=== PATIENT | female | born 1985 | race Caucasian/White ===

== ENCOUNTER → 2019-12-06 15:28 | Outpatient (BNVA) | payer MEDICAID, SELFPAY | PROVIDERS: Family Provider Electrodiagnostic Medicine; PCP Electrodiagnostic Medicine; Visit Provider Obstetrics & Gynecology | DX: R10.2 Pelvic and perineal pain (principal); N83.201 Unspecified ovarian cyst, right side | CPT/HCPCS: 76830 ==

== ENCOUNTER → 2020-02-29 09:45 | Outpatient (BNVA) | payer SELFPAY | PROVIDERS: Family Provider Electrodiagnostic Medicine; PCP Electrodiagnostic Medicine; Visit Provider Obstetrics & Gynecology | DX: Z12.4 Encounter for screening for malignant neoplasm of cervix (principal); R10.31 Right lower quadrant pain | CPT/HCPCS: 88175 ==

== ENCOUNTER → 2020-03-27 09:30 | Outpatient (BNVA) | payer SELFPAY | PROVIDERS: Family Provider Electrodiagnostic Medicine; PCP Electrodiagnostic Medicine; Referring Provider Neurological Surgery; Visit Provider Anesthesiology Pain Medicine | DX: M54.16 Radiculopathy, lumbar region (principal); M47.816 Spondylosis without myelopathy or radiculopathy, lumbar region; M43.06 Spondylolysis, lumbar region; M54.12 Radiculopathy, cervical region; M62.830 Muscle spasm of back | CPT/HCPCS: 99204; 99205 ==

== ENCOUNTER → 2020-04-09 12:55 | Outpatient (BNVA) | payer SELFPAY | PROVIDERS: Family Provider Electrodiagnostic Medicine; PCP Electrodiagnostic Medicine; Visit Provider Anesthesiology Pain Medicine | DX: M54.16 Radiculopathy, lumbar region (principal); M54.9 Dorsalgia, unspecified; F17.210 Nicotine dependence, cigarettes, uncomplicated | CPT/HCPCS: 64483; 64484; J1040; J3490 ==

== ENCOUNTER → 2020-07-17 11:36 | Outpatient (BNVA) | payer SELFPAY | PROVIDERS: Family Provider Electrodiagnostic Medicine; PCP Electrodiagnostic Medicine; Visit Provider Electrodiagnostic Medicine | DX: Z11.59 Encounter for screening for other viral diseases (principal) | CPT/HCPCS: 87635 ==

== ENCOUNTER 2020-08-07 18:46 | Emergency (ER) | payer SELFPAY ==
[2020-08-07 19:03] VITALS: BP 141/81; PULSE 102; RESP 17; TEMP 36.9; O2SAT 98; BMI 26.5
--- NOTE | 2020-08-07 19:35 | W.ED.BACK ---
HPI - Back Pain/Injury General: Chief Complaint: Back Pain/Injury Stated Complaint: lower back pain Time Seen by Provider: 08/07/20 19:34 History of Present Illness: HPI Narrative: Patient is a 34-year-old female comes to the ED with acute on chronic lower back pain. Yesterday patient was walking down the steps and her foot got caught she missed a step. She reports not falling or hitting tailbone steps. Denies any head trauma or loss of consciousness. She says she caught herself felt, but it tweaked her lower back. She now has right lower back pain with pain radiating down into the right leg. Pain rated an 8 out of 10 and described as sharp. She also has some centrally located lower back pain as well. Denies any bladder or bowel incontinence, weakness to extremities or pelvic anesthesia. Patient says she is seen pain management clinic in the past for back pain. Associated symptoms: Deny abdominal pain, chills, dysuria, fatigue, fever(s), hematuria, nausea or vomiting Review of Systems Const: Denies: fever(s), chills or fatigue Eyes: Denies: change in vision or eye discomfort ENMT: Denies: throat pain, odynophagia, nasal discharge or nasal congestion Card: Denies: chest pain, palpitations, edema, swelling of feet/ankles, dyspnea on exertion or orthopnea Resp: Denies: dyspnea, productive cough or non-productive cough GI: Denies: abdominal pain, nausea, vomiting, diarrhea, constipation or hematochezia : Denies: flank pain, dysuria or hematuria Musc: Reports: back pain; Denies: neck pain or extremity swelling Skin/Breast: Denies: rash or new lesions Neuro: Denies: headache(s), numbness in extremities or weakness in extremities PFS ED PFSH: Medical History Fibromyalgia Ovarian cyst 04/27/2019: Reports CT scan performed on 04/16/2019 for evaluation of pain showed an ovarian cyst. Sleep apnea (~06/2016) Uses CPAP Surgical History History of bilateral tubal ligation (10/18/12) . Performed by Dr. Fuentes at [facility] in [place], [place]. History of laparoscopy (06/17/11) Performed by Dr. Hayward at [facility] [place] [facility] History of tonsillectomy and adenoidectomy Family History Mother Hypercholesteremia Heart disease Hypertension Diabetes Son No problems noted. Sister Ovarian cancer Grandmother Diabetes maternal Social History Smoking and tobacco status: current some day smoker Alcohol intake: current Alcohol intake frequency: few times a month History of recent travel: No Female Reproductive History: Date of last menstrual period: 07/09/20 Physical Exam Const: COMMON NORMALS: patient oriented x3 HENMT: COMMON NORMALS: normocephalic HEAD & SCALP: normocephalic MOUTH: Normal oral and palatal mucosa present THROAT: posterior oropharynx normal and uvula midline Neck/C-Spine: COMMON NORMALS: supple GENERAL: Yes normal visual inspection Resp: COMMON NORMALS: normal respiratory effort, No retractions, No use of accessory muscles and clear to auscultation bilaterally AUSCULTATION: clear to auscultation bilaterally Cardio: COMMON NORMALS: regular rate, regular rhythm, S1 normal heart sound present, S2 normal heart sound present, No gallops present (Cardio), No clicks present (Cardio), No murmurs present (Cardio) and Peripheral pulses 2+ throughout RATE: regular rate RHYTHM: regular rhythm HEART SOUNDS: S1 normal heart sound present and S2 normal heart sound present PERIPHERAL PULSES: Peripheral pulses 2+ throughout GI: COMMON NORMALS: Normal to inspection, nondistended, normoactive bowel sounds present, Soft to palpation, non-tender and no masses PALPATION: Yes Soft to palpation : COMMON NORMALS: Yes no CVA tenderness BLADDER/KIDNEY EXAM: Yes no CVA tenderness Back/Pelvis: COMMON NORMALS: no CVA tenderness LUMBAR SPINE/LOWER BACK: Yes pain with ROM and Yes paraspinal muscle tenderness Lumbar paraspinal muscle tenderness: right Right lumbar paraspinal muscle tenderness: L3, L4 and L5 Extremity: COMMON NORMALS: normal to inspection and no pedal edema Neuro: COMMON NORMALS: patient oriented x3 and moves all extremities Skin: GENERAL SKIN EXAM: dry skin Course Vital Signs: Vital signs: Vital Signs Temperature 98.5 F 08/07/20 19:03 Pulse Rate 102 H 08/07/20 19:03 Respiratory Rate 17 08/07/20 19:03 Blood Pressure 141/81 08/07/20 19:03 Pulse Oximetry 98 08/07/20 19:03 MDM - Back Pain/Injury MDM Narrative: Medical decision making narrative: Patient is a 34-year-old female comes to the ED with acute on chronic back pain. Says pain radiates down right leg. Exam showed some right para lumbar spine muscle tenderness. I discussed plan with her to give dose of Toradol, Solu-Medrol and Norflex and then I will discharge her home with some ibuprofen 800 mg tablets and Medrol Dosepak. Patient says she sees her neuro surgeon in a couple weeks. Patient agreed with plan. When nurse went to give patient meds and discharge her she had left ED before receiving treatment and discharge papers. Discharge Plan Discharge Patient Disposition: Home Clinical Impression: Lumbar radiculopathy Condition: Stable Prescriptions: New Medrol (Cl) 4 mg tablets,dose pack See Rx Instructions .ROUTE .COMPLEX Qty: 21 RF: 0 ibuprofen 800 mg tablet 800 mg PO Q8H PRN (Reason: pain) Qty: 30 RF: 0 No Action ibuprofen 200 mg tablet 200 mg PO .4 tabs PRNRF: 0 cyclobenzaprine 10 mg tablet 10 mg PO BID PRN (Reason: muscle spasm) Qty: 60 RF: 0 gabapentin 300 mg capsule 300 mg PO TID Qty: 90 RF: 0 Discharge Orders: Discharge Order (Routine); Ordered 08/07/20 Ordered By: Jose F Baires Referrals: Patrick Schreiber, [Primary Care Provider] - Discharge Diet: Regular Discharge Activity: Increase activity as tolerated Patient Instructions: Lumbar Radiculopathy (ED) Activity Restrictions/Additional Instructions: Follow-up with medical provider as directed in 7 to 10 days. Take medications as prescribed. Rest, limit activity and lifting apply cold pack or heat pad to help with symptoms. Stretch lower back daily. Return to the ER or your medical provider if condition worsens. Please read and understand discharge instructions. If any questions, please ask. Coding Level of Care Code ED Resident In Diagnostic Radiology for Kristal Fwrajiv Exam Comprehensive
== END 2020-08-07 20:04 | disposition home or self-care (01) ==
PROVIDERS: Emergency Provider Physician Assistant; PCP Electrodiagnostic Medicine
DX: M54.16 Radiculopathy, lumbar region (principal); F17.210 Nicotine dependence, cigarettes, uncomplicated
CPT/HCPCS: 12345; 99281

== ENCOUNTER 2021-01-24 17:18 | Observation (INO) | payer SELFPAY ==
[2021-01-24 17:24] VITALS: BP 113/73; PULSE 80; RESP 18; TEMP 37.1; O2SAT 94; BMI 27.6
--- NOTE | 2021-01-24 17:32 | PC.NURSE ---
patient denied any abdominal pain or nausea at this time.
[2021-01-24 18:16] VITALS: BP 132/65; PULSE 81; RESP 14; O2SAT 96
[2021-01-24 18:37] VITALS: BP 103/64; PULSE 76; RESP 16; O2SAT 96
[2021-01-24 18:38] VITALS: RESP 14
[2021-01-24] MEDS: HYDROmorphone 1 mg/mL INJ 1 mL IVP (18:38)
[2021-01-24 19:00] VITALS: BP 102/61; PULSE 78; RESP 16; O2SAT 95
[2021-01-24 19:57] VITALS: BP 109/73; PULSE 75; RESP 17; TEMP 37.1; O2SAT 92
--- NOTE | 2021-01-24 20:18 | PM.HP ---
Providers/Chief Complaint Admitting Physician: Parish Sexton MD Primary Care Provider: Patrick Schreiber DO Chief Complaint: ABD PAIN History of Present Illness Katya Leroy is a 35 year old female who developed severe right-sided abdominal pain around 6 PM yesterday associated nausea and one episode of vomiting. The pain is localized to the right lower quadrant, did not radiate, worse with physical activity. She had one episode of loose stools today. Denies any fevers or chills. She was seen at [facility] and initially was thought of kidney stones and therefore a CT without contrast was obtained which showed inflammatory changes with appendicoliths in the right lower quadrant concerning for possible perforation. Review of Systems General: Reports: 10 or more systems reviewed and unremarkable except in HPI and below Medications/Allergies Home Medications Medication Instructions Recorded Confirmed Last Taken Type cyclobenzaprine 10 mg tablet 10 mg PO BID PRN #60 tab 03/27/20 01/24/21 Unknown Rx ascorbic acid (vitamin C) [Vitamin 500 mg PO DAILY 01/24/21 01/24/21 Unknown History C] ibuprofen 600 mg PO PRN 01/24/21 01/24/21 Unknown History Allergies Allergy/AdvReac Type Severity Reaction Status Date / Time Penicillins Allergy hives, Verified 01/24/21 18:15 rash itching PFSH Acute PFSH: Medical History Fibromyalgia Ovarian cyst 04/27/2019: Reports CT scan performed on 04/16/2019 for evaluation of pain showed an ovarian cyst. Sleep apnea (~06/2016) Uses CPAP Surgical History History of bilateral tubal ligation (10/18/12) . Performed by Dr. Fuentes at [facility] in [place], [place]. History of laparoscopy (06/17/11) Performed by Dr. Hayward at [facility] History of tonsillectomy and adenoidectomy Family History Mother Hypercholesteremia Heart disease Hypertension Diabetes Son No problems noted. Sister Ovarian cancer Grandmother Diabetes maternal Social History Smoking and tobacco status: current some day smoker Alcohol intake: current Alcohol intake frequency: few times a month History of recent travel: No Female Reproductive History: Date of last menstrual period: 07/09/20 Vitals/I&O/Wt Last Vital Signs Temp 98.7 F 01/24/21 19:57 Pulse 75 01/24/21 19:57 Resp 17 01/24/21 19:57 BP 109/73 01/24/21 19:57 Pulse Ox 92 01/24/21 19:57 Weight last 48 hrs Weight 156 lb Physical Exam Narrative: EXAM NARRATIVE: HEENT: Normocephalic Eye: Sclera /conjunctiva normal Respiratory and chest: Bilateral clear breath sounds on auscultation Cardiovascular: Normal S1 and S2 heart sounds Abdomen: Soft to palpation, tender right lower quadrant, voluntary guarding present, no rigidity Neurological: Oriented to place person and time Skin: Intact, no lesions appreciated on gross exam A&P Assessment and plan (1) Abdominal pain: 35-year-old female with right lower quadrant pain, tenderness on palpation, nausea, vomiting, WBC of [address] scan findings concerning for acute appendicitis, possible perforation Discussed the CT scan findings with the patient Plan for laparoscopic possible open appendectomy tomorrow IV Cipro and Flagyl N.p.o. IV fluids Procedure, risks, benefits and alternatives have been discussed with the patient who wishes to proceed with surgery. 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
[2021-01-24] MEDS: metroNIDAZOLE IV 500 MG/100 ML PREMIX 100 MG IV (20:46)
[2021-01-24] MEDS: sodium chloride 0.9% 1,000 ML 150 ML IV (20:46)
[2021-01-24] MEDS: ciprofloxacin 400 MG/200 ML PREMIX 200 MG IV (22:09)
--- NOTE | 2021-01-24 22:20 | ED_ITS ---
HPI - Abdominal Pain General: Chief Complaint: Abdominal Pain Stated Complaint: ABD PAIN Time Seen by Provider: 01/24/21 17:28 History of Present Illness: HPI narrative: 35-year-old female sent from an outside facility ER to our ER. She has a history of right lower quadrant pain starting yesterday, with worsening today. Has been very nauseated. At that facility, she had a mild leukocytosis, CT showed a fluid collection in the right lower quadrant suspicious for appendiceal rupture. She was given antibiotics evidently there. MD elicited complaint: abdominal pain Onset (ago): day(s) Pain Consistency: constant Location: RLQ Severity: severe Quality: cramping and stabbing Radiation: none Migration to: no migration Associated Symptoms: Reports nausea; Denies diarrhea, fever(s) and vomiting Related Data: Date of Last Menstrual Period: 07/09/20 Review of Systems Const: Denies: fever(s) Card: Denies: chest pain or palpitations Resp: Denies: dyspnea or productive cough GI: Reports: nausea; Denies: vomiting or diarrhea : Denies: difficulty voiding PFSH ED PFSH: Medical History (Updated 01/24/21 @ 22:24 by Butch Alanis DO) Fibromyalgia Ovarian cyst 04/27/2019: Reports CT scan performed on 04/16/2019 for evaluation of pain showed an ovarian cyst. Sleep apnea (~06/2016) Uses CPAP Surgical History History of bilateral tubal ligation (10/18/12) . Performed by Dr. Fuentes at [facility] in [place], [place]. History of laparoscopy (06/17/11) Performed by Dr. Hayward at [facility] History of tonsillectomy and adenoidectomy Family History Mother Hypercholesteremia Heart disease Hypertension Diabetes Son No problems noted. Sister Ovarian cancer Grandmother Diabetes maternal Social History Smoking and tobacco status: current some day smoker Alcohol intake: current Alcohol intake frequency: few times a month History of recent travel: No Female Reproductive History: Date of last menstrual period: 07/09/20 Physical Exam Const: COMMON NORMALS: no acute distress and alert HENMT: COMMON NORMALS: normocephalic HEAD & SCALP: normocephalic Chest: COMMONS NORMALS: normal inspection of the chest Resp: COMMON NORMALS: normal respiratory effort, No use of accessory muscles and clear to auscultation bilaterally AUSCULTATION: clear to auscultation bilaterally Cardio: COMMON NORMALS: regular rate, regular rhythm and No murmurs present (Cardio) RATE: regular rate RHYTHM: regular rhythm GI: PALPATION: Yes Tenderness to palpation present (GI) Details: RLQ and Yes Guarding due to palpation present (GI) Neuro: SENSORIUM/ORIENTATION: Yes alert Course Consultations: Consultation #1: mikki Vital Signs: Vital signs: Vital Signs Temperature 98.7 F 01/24/21 19:57 Pulse Rate 75 01/24/21 19:57 Respiratory Rate 17 01/24/21 19:57 Blood Pressure 109/73 01/24/21 19:57 Pulse Oximetry 92 01/24/21 19:57 MDM - Abdominal Pain MDM Narrative: Medical decision making narrative: 35-year-old female presents as an outside facility transfer. She is screened in the ER. Her vitals are stable with blood pressure in the normal range and heart rate in the 80s. She is afebrile here. She does complain of right lower quadrant pain, and is given medication for this. She had received antibiotics at the outside facility. She is penicillin allergic, and will receive ciprofloxacin and Flagyl on admission. Spoke with surgery who agrees to the admit. They will evaluate her tonight. Discharge Plan Discharge Patient Disposition: Admitted As Inpatient Admit Provider: Parish Sexton Clinical Impression: Abdominal pain Qualifiers: Abdominal location: right lower quadrant Qualified Code(s): R10.31 - Right lower quadrant pain Acute appendicitis Qualifiers: Acute appendicitis type: with localized peritonitis Appendicitis gangrene presence: without gangrene Appendicitis perforation presence: with perforation Appendicitis abscess presence: without abscess Qualified Code(s): K35.32 - Acute appendicitis with perforation and localized peritonitis, without abscess Condition: Stable Coding Level of Care Code ED Bone Density Technician for g Fwd Exam Detailed
[2021-01-25] VITALS (18 sets, daily range): BP systolic 94–132; BP diastolic 57–81; PULSE 62–103; RESP 10–18; TEMP 36.4–37.5; O2SAT 92–98
[2021-01-25] MEDS: HYDROmorphone 1 mg/mL INJ 1 mL IVP ×2 (00:08→05:51)
[2021-01-25] MEDS: metroNIDAZOLE IV 500 MG/100 ML PREMIX 100 MG IV (03:07)
[2021-01-25] MEDS: sodium chloride 0.9% 1,000 ML 150 ML IV (05:51)
[2021-01-25] MEDS: sodium chloride 0.9% 1,000 ML 30 ML IV (07:50)
[2021-01-25 07:52] LABS: Basophils % 0.4 %; Eosinophils # 0.1 10^3/uL (0.0-0.8); Eosinophils % 1.1 %; Hematocrit 41.5 % (37.0-47.0); Hemoglobin 13.3 g/dL (11.5-15.3); Lymphocytes # 1.9 10^3/uL (0.8-4.8); Lymphocytes % 18.1 %; Mean Corpuscular Hemoglobin 30.4 pg (28.0-34.0); Mean Corpuscular Volume 94.7 fL (81-99); Mean Platelet Volume 11.2 fL (7.4-10.4); Monocytes # 0.8 10^3/uL (0.2-0.9); Monocytes % 7.6 %; Neutrophils # 7.51 10^3/uL (1.8-7.7); Neutrophils % 72.5 %; Nucleated Red Blood Cells % 0 %; Platelet Count 195 10^3/cmm (130-400); Red Blood Count 4.38 10^6/uL (4.1-5.3); Red Cell Distribution Width 13.2 % (12.1-15.1); White Blood Count 10.4 10^3/uL (4.0-10.0)
--- NOTE | 2021-01-25 08:00 | PM.PN ---
Subjective Subjective: Interval history: No issues overnight, patient continues to be tender in the right lower quadrant, no nausea or vomiting Vitals/I&O/Wt Last Vital Signs Temp 99.5 F 01/25/21 07:54 Pulse 94 01/25/21 07:54 Resp 18 01/25/21 07:54 BP 98/61 01/25/21 07:54 Pulse Ox 94 01/25/21 07:54 01/24/21 01/25/21 01/25/21 22:59 06:59 14:59 Intake Total 562.5 / 1640.0 1077.5 / 1640.0 Output Total 250 / 250 Balance 562.5 / 1390.0 827.5 / 1390.0 Weight last 48 hrs Weight 156 lb Physical Exam Narrative: EXAM NARRATIVE: Abdomen: Soft, tender right lower quadrant Data : 01/25/21 07:10 01/25/21 07:10 A&P Assessment and plan (1) Abdominal pain: 35-year-old female with right lower quadrant pain, tenderness on palpation, nausea, vomiting, WBC of [address] scan findings concerning for acute appendicitis, possible perforation patient's WBC is down to 10.4 Plan for laparoscopic possible open appendectomy today She is on therapeutic IV Cipro and Flagyl I discussed with the patient and the about the fact that the appendix could not be well visualized on the CT scan though there was inflammatory changes in the right lower quadrant most consistent with acute appendicitis, possible perforation. We will plan for diagnostic laparoscopy with possible appendectomy, if appendix is normal check for any other pathology. There is also possibility that due to significant inflammation an appendectomy cannot be performed in which case I will perform washout and or drainage. Procedure, risks, benefits and alternatives have been discussed with the patient who wishes to proceed with surgery. 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
--- NOTE | 2021-01-25 08:02 | P.ANESASSM_ITS ---
Pre-Anesthetic Assessment Pre-Anesthetic Assessment: Height/Weight: Height 1.6 m Weight 70.76 kg Temp Pulse Resp BP Pulse Ox 99.5 F 94 18 98/61 94 01/25/21 07:54 01/25/21 07:54 01/25/21 07:54 01/25/21 07:54 01/25/21 07:54 Preop Diagnosis: Acute appendicitis Proposed Procedure: Operation Date: 01/25/21 08:00 Proposed Procedures p Laparoscopic Appendectomy(Not Applicable) - Parish Sexton MD Was Beta Joellen taken within 24 hours: N/A Was Clonidine taken within 24 hours: N/A Last intake: Intake Last Liquid Date 01/24/21 Last Liquid Time 17:00 Last Solid Date 01/24/21 Last Solid Time 17:00 Social: Social History: Tobacco and No alcohol Exam: Pre-Anes Outpt Exam: alert, oriented x 3, clear to auscultation bilaterally and regular rate & rhythm Airway: Submandibular: WNL Cervical ROM: WNL MP: 2 Dentition: Full History/ROS: No significant history except as noted Pulmonary: Pulmonary: COPD Musc/skel: Musc/skel: Lower Back Pain Anesthetic Plan: ASA status: 2 Anesthesia: General Other: Mod RSI Risk of > 500 ml blood loss (7ml/kg in children): No Meds/Allergies Current Medications: Current Medications Generic Name Dose Route Start Last Admin Trade Name Freq PRN Reason Stop Dose Admin Hydromorphone HCl 1 mg 01/24/21 19:58 01/25/21 05:51 Hydromorphone 1 Mg/Ml Inj 1 Ml IVP 1 mg Q2H PRN Administration pain Sodium Chloride 1,000 mls @ 150 m ls/hr 01/24/21 19:58 01/25/21 05:51 Sodium Chloride 0.9% IV 150 mls/hr .[id number] STEFFANY Administration Ciprofloxacin/Dext miguel 400 mg in 200 mls @ 200 mls/hr 01/24/21 20:00 01/24/21 23:10 Cipro IV Infused Q12H STEFFANY Infusion Protocol Metronidazole 500 mg in 100 mls @ 100 mls/hr 01/24/21 21:00 01/25/21 04:10 Flagyl Iv IV Infused Q6H STEFFANY Infusion Protocol PFS Anesthesia PFSH: Medical History (Updated 01/24/21 @ 22:24 by Butch Alanis DO) Fibromyalgia Ovarian cyst 04/27/2019: Reports CT scan performed on 04/16/2019 for evaluation of pain showed an ovarian cyst. Sleep apnea (~06/2016) Uses CPAP Surgical History History of bilateral tubal ligation (10/18/12) . Performed by Dr. Fuentes at [facility] in [place], [place]. History of laparoscopy (06/17/11) Performed by Dr. Hayward at [facility] History of tonsillectomy and adenoidectomy Family History Mother Hypercholesteremia Heart disease Hypertension Diabetes Son No problems noted. Sister Ovarian cancer Grandmother Diabetes maternal Social History Smoking and tobacco status: current some day smoker Alcohol intake: current Alcohol intake frequency: few times a month History of recent travel: No Female Reproductive History: Date of last menstrual period: 07/09/20 Data Anesthesia CBC & Chem 7: 01/25/21 07:10 01/25/21 07:10 Other Labs: Laboratory Results - last 48 hr 01/24/21 01/25/21 21:30 07:10 WBC 10.4 H RBC 4.38 Hgb 13.3 Hct 41.5 MCV 94.7 MCH 30.4 MCHC 32.0 RDW 13.2 Plt Count 195 MPV 11.2 H Neut % (Auto) 72.5 Lymph % (Auto) 18.1 Pine % (Auto) 7.6 Eos % (Auto) 1.1 Baso % (Auto) 0.4 Neut # (Auto) 7.51 Lymph # (Auto) 1.9 Pine # (Auto) 0.8 Eos # (Auto) 0.1 Baso # (Auto) 0.0 Nucleated RBC % (auto) 0 Nucleated RBCs # 0.0 Urine HCG, Qual Negative Cardiac Studies: No Data to Display
[2021-01-25 08:16] LABS: Alanine Aminotransferase 29 U/L (0-33); Albumin Level 3.7 g/dL (3.5-5.2); Alkaline Phosphatase 114 IU/L (35-105); Anion Gap 11.8 (5-19); Aspartate Amino Transferase 20 U/L (0-32); Blood Urea Nitrogen 4 mg/dL (6-20); Calcium 7.8 mg/dL (8.5-10.5); Carbon Dioxide 24 mmol/L (22-29); Chloride 105 mmol/L (98-107); Globulin 2.4 g/dL (1.3-4.6); Glomerular Filtration Rate 112.5 mL/min (90-130); Glucose 89 mg/dL (65-115); Osmolality Calculated 280 mOsm/kg (285-295); Potassium 3.8 mmol/L (3.5-5.1); Sodium 137 mmol/L (136-145); Total Bilirubin 0.5 mg/dL (0.15-1.2); Total Protein 6.1 g/dL (6.6-8.7)
--- NOTE | 2021-01-25 08:57 | P.OP_ITS ---
Operative Report Date of procedure: January 25, 2021 Pre-op Diagnosis: Acute appendicitis Post-op diagnosis: same Procedure Done: Laparoscopic appendectomy Specimens removed/disposition: Appendix Surgeon: Parish Sexton Anesthesia: General Condition: stable Disposition: PACU Procedure: The patient was taken to the Operating Room and intubated under general anesthesia after antibiotic had been administered. Using a 15 blade, a 1-cm infraumbilical incision was made and using open Jessica technique, the peritoneal cavity was entered. A 12mm port with balloon was placed and 14 mm of pneumoperitoneum was created and 10-mm 30 degree scope was introduced. Two separate 5mm ports were placed in the left and right lower quadrant under direct visualization. The appendix was noted in the right lower quadrant and appeared acutely inflamed.. Using [place] forceps, an opening was made in the mesoappendix near the base of the appendix. An Endo ANÍBAL stapler 45mm long 3.5mm blue load was introduced to divide the appendix at it's base. Using electrocaut jonathon, the mesoappendix including the appendicular artery was divided. There was no bleeding noted and the staple line appeared intact. The right lower quadrant was irrigated with saline and an EndoCatch bag was introduced to remove the appendix. All three ports were removed under direct visualization and there was no bleeding noted on the port sites. 10 cc of 0.5% Marcaine was infiltrated at the port sites. The fascia at the umbilical port was closed using figure of eight 0-Vicryl sutures and subcutaneous tissue was approximated using 3-0 Vicryl and skin at all 3 port sites was closed using 4-0 Monocryl and Dermabond.
--- NOTE | 2021-01-25 08:58 | PM.DCS ---
Discharge Providers Date of Admission: 01/24/21 18:34 Date of Discharge: January 25, 2021 Attending Provider at Admission: Parish Sexton MD Attending Provider at Discharge: Parish Sexton MD Primary Care Provider: Patrick Schreiber DO Diagnoses at Discharge Discharge Diagnosis (1) Abdominal pain: Status: Acute Qualifiers: Abdominal location: right lower quadrant Qualified Code(s): R10.31 - Right lower quadrant pain Reason for Visit Reason for Visit: ABD PAIN Hospital Course Hospital Course Katya Leroy is a 35 year old female who developed severe right-sided abdominal pain around 6 PM yesterday associated nausea and one episode of vomiting. The pain is localized to the right lower quadrant, did not radiate, worse with physical activity. She had one episode of loose stools today. Denies any fevers or chills. She was seen at [facility] and initially was thought of kidney stones and therefore a CT without contrast was obtained which showed inflammatory changes with appendicoliths in the right lower quadrant concerning for possible perforation. Patient was admitted to the hospital overnight for IV antibiotics and underwent laparoscopic appendectomy. At time of discharge her vital signs are stable, she is tolerating a liquid diet and pain is well controlled with oral pain medications. Discharge Data Data Completed and Pending: Pending at discharge Category Date Time Status ES surgery / GI i mages Routine Exams 01/25/21 07:20 Taken Pathology: Surgic al [PTH] Routine Pth 01/25/21 08:47 Ordered Labs from last 24 hours 01/25/21 01/25/21 01/24/21 07:10 07:10 21:30 WBC 10.4 H RBC 4.38 Hgb 13.3 Hct 41.5 MCV 94.7 MCH 30.4 MCHC 32.0 RDW 13.2 Plt Count 195 MPV 11.2 H Neut % (Auto) 72.5 Lymph % (Auto) 18.1 [place] % (Auto) 7.6 Eos % (Auto) 1.1 Baso % (Auto) 0.4 Neut # (Auto) 7.51 Lymph # (Auto) 1.9 [place] # (Auto) 0.8 Eos # (Auto) 0.1 Baso # (Auto) 0.0 Nucleated RBC % (a uto) 0 Nucleated RBCs # 0.0 Sodium 137 Potassium 3.8 Chloride 105 Carbon Dioxide 24 Anion Gap 11.8 BUN 4 L Creatinine 0.6 GFR Calculation 112.5 Glucose 89 Calculated Osmolal ity 280 L Calcium 7.8 L Total Bilirubin 0.5 AST 20 ALT 29 Alkaline Phosphata se 114 H Total Protein 6.1 L Albumin 3.7 Globulin 2.4 Urine HCG, Qual Negative Vitals: Last Vital Signs Temp 99.5 F 01/25/21 07:54 Pulse 94 01/25/21 07:54 Resp 18 01/25/21 07:54 BP 98/61 01/25/21 07:54 Pulse Ox 94 01/25/21 07:54 Discharge Plan Discharge Patient Disposition: Home Condition: Stable Prescriptions: New hydrocodone-acetaminophen 5-325 mg tablet 1 tab PO Q6H PRN (Reason: pain) Qty: 20 RF: 0 docusate sodium [Colace] 100 mg capsule 100 mg PO BID Qty: 30 RF: 0 ondansetron HCl [Zofran] 4 mg tablet 4 mg PO Q6H PRN (Reason: nausea and vomiting) Qty: 20 RF: 0 Continued cyclobenzaprine 10 mg tablet 10 mg PO BID PRN (Reason: muscle spasm) Qty: 60 RF: 0 Vitamin C 500 mg Tablet,Chewable 500 mg PO DAILY RF: 0 ibuprofen 200 mg Tablet 600 mg PO PRN RF: 0 Discharge Orders: Discharge Order (Routine); Ordered 01/25/21 Ordered By: Parish Sexton Referrals: Parish Sexton MD [Physician] - 2 weeks Patient Instructions: Opioid Safety Activity Restrictions/Additional Instructions: Diet Advance to normal diet as tolerated, increase fluid intake as much as possible. Activity Avoid strenuous activity for 2 weeks but continue with daily activities including walking as tolerated. Do not lift more than 10 pounds for 2 weeks Return to work/school You can return to work/ school whenever you feel ready as long as you don?t have to lift more than 10 pounds at work. If you have paperwork that needs to be completed for time off from work, please contact my office Driving You can resume driving once you stop using narcotic pain medications, and transition to non-opioid pain medications like Tylenol, Motrin, Aleve, etc. Medications Pain Take opioid pain medications as prescribed and transition to non-opioid pain medications like Tylenol, Motrin, Aleve etc. over the next few days. The goal of the pain medications is to make the pain bearable and not to be pain free since you recently had surgery. Resume all home medications after surgery as per the medication reconciliation list Nausea Nausea is common after surgery, take nausea medications as needed and stay on a liquid bland diet until nausea resolves. Constipation The combination of surgery, anesthesia and pain medications can result in constipation. Take stool softeners as prescribed. If you do not have a bowel movement in 3 days, please take an [id number] laxative like MiraLAX to address the constipation. Shower It is ok to shower but avoid getting the wound wet for 48 hours after surgery. Do not soak in bathtub, swimming pool or hot tub for 2 weeks. Wound care The glue applied to the incision will peel slowly over the next two weeks. The stitches used are dissolvable and will not need to be removed. Do not apply antibiotics or other medications on the incision Problems with the wound You can develop some redness around the incision from bruising after surgery. If there is increasing pain, redness, tenderness around the incision with or without drainage, please contact my office to rule out an infection. Sometimes the skin at the incisions can separate, resulting in reopening of the wound. Cover the wound with antibiotic cream and sterile dressings and contact my office. Contact physician Call the office at [phone] during office hours or go the Emergency Room after hours for - ?Fever to 100.4 or greater ?Shaking chills ?Pain that increases over time ?Redness, warmth, or pus draining from incision sites ?Persistent nausea or inability to take in liquids Discharge Attestations Time Spent in Discharge Care*: less than 30 min Quality Metrics Clinical Quality Measures During this hospital stay, did patient experience: None Coding Level of Care Code Acute [facility] note Diagnoses Abdominal pain R10.31 Abdominal location: right lower quadrant
--- NOTE | 2021-01-25 09:17 | SUR.PHASEI ---
0910 pt awakes and oral airway out , good resp noted pt rubbing at face, VSS.
[2021-01-25] MEDS: fentaNYL 50 mcg/mL INJ 2mL IVP (09:23)
--- NOTE | 2021-01-25 09:33 | SUR.PHASEI ---
PT AWAKE ALERT ORAL AIRWAY OUT PT TAKING OCC ICE CHIPS AND SEE RECENT PAIN MED GIVEN FOR PAIN OF 8
--- NOTE | 2021-01-25 09:44 | SUR.PHASEI ---
PT NOW OUT OF PHASE 1 RECOVERY AND IS HOLDING WAITING TO GIVE REPORT TO NURSE, TO BEDSIDE PT RESTING QUIETLY VSS.
--- NOTE | 2021-01-25 10:01 | ANE.PACU2 ---
Inpatient post-anesthesia follow up: Airway intact: Yes Vital signs: Temperature 98.6 F Pulse Rate [Monito r] 80 Pulse Rate 80 Respiratory Rate 18 Blood Pressure [Ri ght Arm] 113/73 Blood Pressure 98/70 Pulse Oximetry 96 Oxygen Delivery Me thod Nasal Cannula Oxygen Flow Rate 2 Fraction of Inspir ed Oxygen Hydration adequate: Yes Nausea and vomiting: No Pain level: 2 Mental status: Baseline
[2021-01-25] MEDS: HYDROcodone-acetaminophen 5-325 mg Tablet 1 TAB PO (10:54)
--- NOTE | 2021-01-26 16:10 | PC.RESP ---
Smoking Cessation information sent to patient.
== END 2021-01-25 12:10 | disposition home or self-care (01) ==
LOC: ER 17:53 → MEDSURG 21:22
PROVIDERS: Admitting Provider Surgery; Emergency Provider Emergency Medicine; PCP Electrodiagnostic Medicine; Visit Provider Surgery
PROC: 0DTJ4ZZ Resection of Appendix, Percutaneous Endoscopic Approach (ICD-10-PCS; CPT 44970; principal; 2021-01-25 08:00)
DX: K35.80 Unspecified acute appendicitis (principal); J44.9 Chronic obstructive pulmonary disease, unspecified; M79.7 Fibromyalgia; G47.30 Sleep apnea, unspecified; F17.210 Nicotine dependence, cigarettes, uncomplicated
CPT/HCPCS: 44970; 36415; 80053; 81025; 85025; 88304; 96361; 96374; 99285; G0378; J0330; J0744; J1100; J1170; J2250; J2405; J2704; J2710; J3010; J3490; J7030; S0030

== ENCOUNTER 2021-02-05 14:47 | Outpatient (CLI) | payer SELFPAY | END 2021-02-05 14:48 | disposition home or self-care (01) | PROVIDERS: PCP Electrodiagnostic Medicine; Visit Provider Surgery | DX: R19.7 Diarrhea, unspecified (principal) | CPT/HCPCS: 83630; 87177; 87209; 87493; 87506 ==

== ENCOUNTER 2021-02-06 13:27 | Outpatient (CLI) | payer SELFPAY ==
[2021-02-06 13:48] LABS: Basophils # 0.1 10^3/uL (0.0-0.1); Basophils % 0.8 %; Eosinophils # 0.2 10^3/uL (0.0-0.8); Eosinophils % 1.9 %; Hematocrit 43.4 % (37.0-47.0); Hemoglobin 14.6 g/dL (11.5-15.3); Lymphocytes % 33.9 %; Mean Corpuscular HGB Conc 33.6 g/dL (30.0-36.0); Mean Corpuscular Hemoglobin 30.9 pg (28.0-34.0); Mean Corpuscular Volume 91.8 fL (81-99); Mean Platelet Volume 10.5 fL (7.4-10.4); Monocytes # 0.5 10^3/uL (0.2-0.9); Monocytes % 4.3 %; Neutrophils # 6.92 10^3/uL (1.8-7.7); Neutrophils % 58.8 %; Nucleated Red Blood Cells % 0 %; Platelet Count 270 10^3/cmm (130-400); Red Blood Count 4.73 10^6/uL (4.1-5.3); Red Cell Distribution Width 12.8 % (12.1-15.1); White Blood Count 11.8 10^3/uL (4.0-10.0)
[2021-02-06 14:09] LABS: Anion Gap 11.6 (5-19); Blood Urea Nitrogen 7 mg/dL (6-20); Calcium 8.7 mg/dL (8.5-10.5); Carbon Dioxide 27 mmol/L (22-29); Chloride 104 mmol/L (98-107); Glomerular Filtration Rate 112.5 mL/min (90-130); Glucose 90 mg/dL (65-115); Osmolality Calculated 286 mOsm/kg (285-295); Potassium 3.6 mmol/L (3.5-5.1); Sodium 139 mmol/L (136-145)
== END 2021-02-06 13:28 | disposition home or self-care (01) ==
LOC: LAB 13:29
PROVIDERS: PCP Electrodiagnostic Medicine; Visit Provider Surgery
DX: Z90.49 Acquired absence of other specified parts of digestive tract (principal)
CPT/HCPCS: 36415; 80048; 85025

== ENCOUNTER 2021-02-12 16:02 | Outpatient (CLI) | payer SELFPAY ==
--- NOTE | 2021-02-12 14:30 | CTR_ITS ---
PROCEDURE INFORMATION: Exam: CT Abdomen And Pelvis With Contrast Exam date and time: 02/12/2021 4:07 PM Age: 35 years old Clinical indication: Other: Diarrhea; Abdominal pain; Localized; Right lower quadrant (rlq); Prior surgery; Surgery date: <1 month; Surgery type: Appy x 2 weeks. Tubal; Additional info: R10.31 - right lower quadrant pain TECHNIQUE: Imaging protocol: Computed tomography of the abdomen and pelvis with contrast. Total images: 225 Radiation optimization: All CT scans at this facility use at least one of these dose optimization techniques: automated exposure control; mA and/or kV adjustment per patient size (includes targeted exams where dose is matched to clinical indication); or iterative reconstruction. Contrast material: OMNI 300; Contrast volume: 95 ml; Contrast route: INTRAVENOUS (IV); Other contrast: Oral, OMNI 300, 25; COMPARISON: No relevant prior studies available. RADIATION DOSE METRICS: Total DLP (mGy-cm): 1300.33 FINDINGS: Lungs: Limited assessment of the lung bases fails to reveal evidence for active cardiopulmonary process. Liver: No visible hepatic mass or cystic structure. Gallbladder and bile ducts: Gallbladder contracted. No visible cholelithiasis. No visible intra or extrahepatic biliary ectasia. Pancreas: Pancreas unremarkable. Spleen: Normal. No splenomegaly. Adrenal glands: Adrenal glands unremarkable. Kidneys and ureters: No hydronephrosis or perinephric fluid bilaterally. No visible nephrolithiasis. Stomach and bowel: Assessment of the hollow viscus fails to reveal evidence of active or acute pathology. Nonobstructed bowel pattern. No visible acute diverticulitis. No visible adynamic or reactive ileus. No visible evidence to suggest the presence of active or acute infectious or inflammatory colitis. Appendix: Status post appendectomy. Intraperitoneal space: No visible evidence of mesenteric lymphadenitis or active mesenteritis/panniculitis. No visible pneumoperitoneum or intraperitoneal ascites. Vasculature: Portal vein patent. The abdominal aorta is nonaneurysmal. Lymph nodes: No current visible evidence of active mesenteric or retroperitoneal lymphadenopathy. Urinary bladder: Urinary bladder unremarkable. Reproductive: Unremarkable as visualized. Bones/joints: No visible active or acute osseous pathology. Bilateral spondylolysis L5/S1 without significant spondylolisthesis. Soft tissues: Unremarkable. CT/CT abdomen pelvis w con* [id number] IMPRESSION: Currently no visible evidence for acute abdominal or pelvic pathologic process. Radiation Dose CTDIVOL = (mGy): DLP = 1300.33 (mGy-cm)
[2021-02-12 16:23] LABS: Add Urine Microscopic? YES; Bilirubin Urine Neg (Negative); Blood Urine 2+ (Negative); Glucose Urine UA Norm (Normal); Ketones Urine Negative (Negative); Leukocyte Esterase Urine Negative (Negative); Nitrate Urine Negative (Negative); Protein Urine Neg (Negative); Urine Appearance Clear (CLEAR); Urine Color Yellow (Yellow); Urobilinogen Urine Norm (Negative); pH Urine 5 (5-7)
[2021-02-12] MEDS: iohexol 300 mg/mL 50 mL Btl IV (16:26)
[2021-02-12 16:46] LABS: Add Urine Culture? No; Bacteria Urine TRACE /hpf; RBC Urine 0-4 /hpf (0-2); Squamous Epithelial Cell Urine 0-4 /hpf (0-5)
[2021-02-12] MEDS: iohexol 300 mg/mL 100 mL Btl IV (17:32)
== END 2021-02-12 16:03 | disposition home or self-care (01) ==
LOC: RAD 16:05
PROVIDERS: PCP Electrodiagnostic Medicine; Visit Provider Surgery
DX: N23 Unspecified renal colic (principal)
CPT/HCPCS: 74177; 81001; 87086

== ENCOUNTER → 2021-05-05 14:49 | Outpatient (BNVA) | payer OTHER, SELFPAY | PROVIDERS: PCP Electrodiagnostic Medicine; Visit Provider Nurse Practitioner Family | DX: Z20.822 Contact with and (suspected) exposure to COVID-19 (principal) | CPT/HCPCS: 87635 ==

== ENCOUNTER 2021-05-11 12:11 | Outpatient (CLI) | payer MEDICAID, SELFPAY ==
[2021-05-11 13:28] LABS: Add Urine Microscopic? NO; Charge for UA Resulting for Rev
[2021-05-11 13:44] LABS: Basophils # 0.1 10^3/uL (0.0-0.1); Basophils % 0.4 %; Eosinophils # 0.1 10^3/uL (0.0-0.8); Eosinophils % 0.8 %; Hematocrit 48.5 % (37.0-47.0); Hemoglobin 15.8 g/dL (11.5-15.3); Lymphocytes # 3.7 10^3/uL (0.8-4.8); Lymphocytes % 30.8 %; Mean Corpuscular HGB Conc 32.6 g/dL (30.0-36.0); Mean Corpuscular Hemoglobin 30.7 pg (28.0-34.0); Mean Corpuscular Volume 94.4 fL (81-99); Mean Platelet Volume 11.7 fL (7.4-10.4); Monocytes # 0.6 10^3/uL (0.2-0.9); Monocytes % 4.9 %; Neutrophils # 7.47 10^3/uL (1.8-7.7); Neutrophils % 62.8 %; Nucleated Red Blood Cells % 0 %; Platelet Count 255 10^3/cmm (130-400); Red Blood Count 5.14 10^6/uL (4.1-5.3); Red Cell Distribution Width 13.3 % (12.1-15.1); White Blood Count 11.9 10^3/uL (4.0-10.0)
[2021-05-11 13:45] LABS: Bilirubin Urine Neg (Negative); Blood Urine Neg (Negative); Glucose Urine UA Norm (Normal); Ketones Urine Negative (Negative); Leukocyte Esterase Urine Negative (Negative); Nitrate Urine Negative (Negative); Protein Urine Neg (Negative); Specific Gravity, Urine 1.015 (1.005-1.030); Sulfosalicylic Acid Urine Negative (Negative); Urine Appearance Clear (CLEAR); Urine Color Straw (Yellow); Urobilinogen Urine Norm (Negative); pH Urine 8 (5-7)
[2021-05-11 13:54] LABS: Alanine Aminotransferase 15 U/L (0-33); Albumin Level 4.6 g/dL (3.5-5.2); Alkaline Phosphatase 97 IU/L (35-105); Aspartate Amino Transferase 18 U/L (0-32); Blood Urea Nitrogen 5 mg/dL (6-20); Calcium 9.2 mg/dL (8.5-10.5); Carbon Dioxide 26 mmol/L (22-29); Chloride 104 mmol/L (98-107); Globulin 2.4 g/dL (1.3-4.6); Glucose 72 mg/dL (65-115); Lipase 13 U/L (13-60); Osmolality Calculated 288 mOsm/kg (285-295); Sodium 141 mmol/L (136-145); Total Bilirubin 0.3 mg/dL (0.15-1.2)
[2021-05-11 14:02] LABS: Potassium 4.2 mmol/L (3.5-5.1)
[2021-05-11 14:11] LABS: Anion Gap 15.2 (5-19); Glomerular Filtration Rate 112.5 mL/min (90-130)
== END 2021-05-11 12:12 | disposition home or self-care (01) ==
LOC: LAB 12:23
PROVIDERS: PCP Electrodiagnostic Medicine; Visit Provider Surgery
DX: R10.9 Unspecified abdominal pain (principal)
CPT/HCPCS: 80053; 81003; 83690; 85025

== ENCOUNTER → 2021-06-29 12:04 | Outpatient (BNVA) | payer MEDICAID, SELFPAY | PROVIDERS: PCP Electrodiagnostic Medicine; Visit Provider Surgery | DX: Z20.822 Contact with and (suspected) exposure to COVID-19 (principal); R19.7 Diarrhea, unspecified | CPT/HCPCS: 87635 ==

== ENCOUNTER 2021-07-03 06:36 | Day surgery (SDC) | payer MEDICAID, SELFPAY ==
[2021-06-29 10:52] VITALS: BMI 25.8
--- NOTE | 2021-07-03 06:52 | P.HP_ITS ---
Same Day Surgery H&P Indication for Procedure/HPI DATE OF PROCEDURE: July 03, 2021 CHIEF COMPLAINT/INDICATIONFOR SURGICAL PROCEDURE: family history of colon cancer PREOP DIAGNOSIS: screening colonoscopy PLANNED PROCEDRUE: Operation Date: 07/03/21 07:30 Proposed Procedures p Colonoscopy 66333 R19.7(Not Applicable) - Parish Sexton MD Medications/Allergies* Home Medications Medication Instructions Recorded Confirmed Type ibuprofen 600 mg PO PRN 01/24/21 06/29/21 History fluoxetine [Prozac] 10 mg PO DAILY 06/29/21 06/29/21 History Allergies/Adverse Reactions Allergy/AdvReac Type Severity Reaction Status Date / Time levofloxacin Allergy ALGY-Hives Verified 06/29/21 10:52 metronidazole [From Flagyl] Allergy ALGY-Hives Verified 06/29/21 10:52 Penicillins Allergy hives, Verified 06/29/21 10:52 rash itching Pertinent History/Comorbid Conditions* Medical History (Updated 01/26/21 @ 00:01 by ) Fibromyalgia Ovarian cyst 04/27/2019: Reports CT scan performed on 04/16/2019 for evaluation of pain showed an ovarian cyst. Sleep apnea (~06/2016) Uses CPAP Surgical History (Updated 03/03/21 @ 13:45 by Parish Sexton MD) History of bilateral tubal ligation (10/18/12) . Performed by Dr. Fuentes at [facility] in [place], [place]. History of laparoscopy (06/17/11) Performed by Dr. Hayward at [facility] History of tonsillectomy and adenoidectomy S/P laparoscopic appendectomy (01/25/21) Family History (Updated 12/03/19 @ 09:39 by India Mcneal LPN) Ovarian cancer Sister Diabetes Mother Grandmother maternal Heart disease Mother Hypercholesteremia Mother Hypertension Mother Social History Smoking and tobacco status: current every day smoker Alcohol intake: current Alcohol intake frequency: few times a month History of recent travel: No Pertinent Exam Findings alert, oriented x 3 and regular rate & rhythm Recommendations Surgery/Procedure today Coding Level of Care Code Acute 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
--- NOTE | 2021-07-03 07:03 | ANES.PREANE2 ---
Pre-Anesthetic Assessment Pre-Anesthetic Assessment: Height/Weight: Height 1.6 m Weight 66.224 kg Preop Diagnosis: screening colonoscopy Proposed Procedure: Operation Date: 07/03/21 07:30 Proposed Procedures p Colonoscopy 08128 R19.7(Not Applicable) - Parish Sexton MD Was Beta Joellen taken within 24 hours: N/A Was Clonidine taken within 24 hours: N/A Social: Social History: Tobacco and No alcohol Packs per day: 1 Exam: Pre-Anes Outpt Exam: alert, oriented x 3, clear to auscultation bilaterally and regular rate & rhythm Airway: Submandibular: WNL Cervical ROM: WNL MP: 1 Dentition: Full History/ROS: No significant complaints Pulmonary: Pulmonary: None reported CV/HEM: CV/HEM: None reported : : None reported Hepatic: Hepatic: None reported GI: GI: None reported Metabolic: Metabolic: None reported Musc/skel: Musc/skel: None reported Neuropsych: Neuropsych: None reported Anesthetic Plan: ASA status: 2 Anesthesia: MAC Risk of > 500 ml blood loss (7ml/kg in children): No PFSH Anesthesia PFSH: Medical History Fibromyalgia Ovarian cyst 04/27/2019: Reports CT scan performed on 04/16/2019 for evaluation of pain showed an ovarian cyst. Sleep apnea (~06/2016) Uses CPAP Surgical History History of bilateral tubal ligation (10/18/12) . Performed by Dr. Fuentes at [facility] in [place], [place]. History of laparoscopy (06/17/11) Performed by Dr. Hayward at [facility] History of tonsillectomy and adenoidectomy S/P laparoscopic appendectomy (01/25/21) Family History Mother Hypercholesteremia Heart disease Hypertension Diabetes Son No problems noted. Sister Ovarian cancer Grandmother Diabetes maternal Social History Smoking and tobacco status: current every day smoker Alcohol intake: current Alcohol intake frequency: few times a month History of recent travel: No Data Anesthesia Cardiac Studies: No Data to Display
[2021-07-03 07:07] LABS: OR HCG Qualitative Urine Negative (Negative)
[2021-07-03 07:14] VITALS: BP 112/65; PULSE 68; RESP 18; TEMP 36.1; O2SAT 97
[2021-07-03] MEDS: sodium chloride 0.9% 1,000 ML 30 ML IV (07:30)
[2021-07-03 08:04] VITALS: BP 95/60; PULSE 78; RESP 16; TEMP 36.1; O2SAT 98
[2021-07-03 08:16] VITALS: BP 103/69; PULSE 64; RESP 18; O2SAT 99
[2021-07-03 08:34] LABS: Carcinoembryonic Antigen 1.8 ng/mL (0.0-4.7)
--- NOTE | 2021-07-03 12:22 | ANE.PACU2 ---
Inpatient post-anesthesia follow up: Airway intact: Yes Vital signs: Temperature 97 F Pulse Rate 64 Respiratory Rate 18 Blood Pressure 103/69 Pulse Oximetry 99 Oxygen Delivery Me thod Room Air Oxygen Flow Rate Fraction of Inspir ed Oxygen Hydration adequate: Yes Nausea and vomiting: No Pain level: 1 Mental status: Baseline
== END 2021-07-03 08:37 | disposition home or self-care (01) ==
PROVIDERS: Anesthesiology; PCP Electrodiagnostic Medicine; Visit Provider Surgery
PROC: 0DJD8ZZ Inspection of Lower Intestinal Tract, Via Natural or Artificial Opening Endoscopic (ICD-10-PCS; CPT 45378; principal; 2021-07-03 07:30)
DX: Z12.11 Encounter for screening for malignant neoplasm of colon (principal); Z86.010 Personal history of colon polyps; M79.7 Fibromyalgia; G47.30 Sleep apnea, unspecified; F17.210 Nicotine dependence, cigarettes, uncomplicated; Z82.49 Family history of ischemic heart disease and other diseases of the circulatory system; Z83.3 Family history of diabetes mellitus
CPT/HCPCS: 36415; 45378; 81025; 82378; 84703; 96360; J2704; J7030

== ENCOUNTER 2021-07-15 07:08 | Outpatient (CLI) | payer MEDICAID, SELFPAY ==
--- NOTE | 2021-07-15 08:00 | NM_ITS ---
WS: [id number] NUCLEAR MEDICINE HIDA SCAN WITH GALLBLADDER EJECTION FRACTION HISTORY: R10.11 - Right upper quadrant pain COMPARISON: CT 02/12/2021 TECHNIQUE: The patient was intravenously injected with 4.3 mCi of TC99m Mebrofenin. Immediate imaging over the right upper quadrant was followed by 5 minute image and additional images for a total of 60 minutes. Normal uptake of radiotracer throughout the liver. Activity identified in the gallbladder at 15 minutes and well distended by 60 minutes. Activity in the proximal small bowel was seen by 20 minutes. Good washout of the radiotracer from the liver by 60 minutes. The patient then drank 8 ounces of Ensure Plus. Ejection fraction at 70 minutes was 79%. Normal GB ej ection fraction is 35-75%. Post fatty meal symptoms: None. NM/NM hepatobiliary w phar* [id number] IMPRESSION: 1. Normal HIDA scan. 2. Normal gallbladder ejection fraction.
== END 2021-07-15 07:09 | disposition home or self-care (01) ==
LOC: RAD 07:14
PROVIDERS: PCP Electrodiagnostic Medicine; Visit Provider Surgery
DX: R10.11 Right upper quadrant pain (principal)
CPT/HCPCS: 78227; A9537

== ENCOUNTER → 2021-07-23 12:35 | Outpatient (BNVA) | payer OTHER, SELFPAY | PROVIDERS: PCP Electrodiagnostic Medicine; Visit Provider Surgery | DX: R10.11 Right upper quadrant pain (principal); Z20.822 Contact with and (suspected) exposure to COVID-19 | CPT/HCPCS: 87635 ==

== ENCOUNTER 2021-07-29 07:54 | Day surgery (SDC) | payer MEDICAID, SELFPAY ==
[2021-07-28 14:16] VITALS: BMI 24.7
[2021-07-29] VITALS (11 sets, daily range): BP systolic 101–120; BP diastolic 50–69; PULSE 61–79; RESP 17–28; TEMP 36.2–36.5; O2SAT 92–97
--- NOTE | 2021-07-29 08:05 | W.PM.OPSUD ---
Surgery/Procedure H&P Update DATE OF PROCEDURE: July 29, 2021 DATE H&P PERFORMED: 07/28/21 H&P UPDATE INFORMATION: I have reviewed H&P completed within last 30 days, I have examined patient prior to procedure and No changes to prior documentation PREOP DIAGNOSIS: Right upper quadrant pain PLANNED PROCEDURE: Operation Date: 07/29/21 09:20 Proposed Procedures p Laparoscopic Cholecystectomy 74527 R10.11(Not Applicable) - Parish Sexton MD s EGD 80007(Not Applicable) - Parish Sexton MD
[2021-07-29 08:13] LABS: OR HCG Qualitative Urine Negative (Negative)
[2021-07-29] MEDS: fentaNYL 50 mcg/mL INJ 2mL IVP ×3 (08:47→11:26)
[2021-07-29] MEDS: sodium chloride 0.9% 1,000 ML 30 ML IV (08:49)
--- NOTE | 2021-07-29 08:49 | ANES.PREANE2 ---
Pre-Anesthetic Assessment Pre-Anesthetic Assessment: Height/Weight: Height 1.6 m Weight 63.503 kg Temp Pulse Resp BP Pulse Ox 97.1 F L 79 17 120/69 96 07/29/21 08:07 07/29/21 08:07 07/29/21 08:07 07/29/21 08:07 07/29/21 08:07 Preop Diagnosis: Right upper quadrant pain Proposed Procedure: Operation Date: 07/29/21 09:20 Proposed Procedures p Laparoscopic Cholecystectomy 49844 R10.11(Not Applicable) - Parish Sexton MD s EGD 97474(Not Applicable) - Parish Sexton MD Was Beta Joellen taken within 24 hours: N/A Was Clonidine taken within 24 hours: N/A Last intake: Intake Last Liquid Date 07/28/21 Last Liquid Time 11:59 Last Solid Date 07/28/21 Last Solid Time 21:00 Social: Social History: Tobacco and No alcohol Exam: Pre-Anes Outpt Exam: alert, oriented x 3 and regular rate & rhythm Airway: Submandibular: WNL Cervical ROM: WNL MP: 2 Dentition: Full Pulmonary: Pulmonary: COPD GI: GI: GERD Musc/skel: Musc/skel: Lower Back Pain Anesthetic Plan: ASA status: 2 Anesthesia: General Risk of > 500 ml blood loss (7ml/kg in children): No PFSH Anesthesia PFSH: Medical History Fibromyalgia Ovarian cyst 04/27/2019: Reports CT scan performed on 04/16/2019 for evaluation of pain showed an ovarian cyst. Sleep apnea (~06/2016) Uses CPAP Surgical History (Updated 07/29/21 @ 08:41 by Parish Sexton MD) H/O esophagogastroduodenoscopy (07/29/21) History of bilateral tubal ligation (10/18/12) . Performed by Dr. Fuentes at [facility] in [place], [place]. History of laparoscopy (06/17/11) Performed by Dr. Hayward at [facility] History of tonsillectomy and adenoidectomy S/P laparoscopic appendectomy (01/25/21) Status post colonoscopy (07/03/21) normal Status post laparoscopic cholecystectomy (07/29/21) Family History Mother Hypercholesteremia Heart disease Hypertension Diabetes Son No problems noted. Sister Ovarian cancer Grandmother Diabetes maternal Social History Alcohol intake: current Alcohol intake frequency: few times a month History of recent travel: No Female Reproductive History: Date of last menstrual period: 07/21/21 Data Anesthesia Other Labs: Laboratory Results - last 48 hr 07/29/21 08:11 Urine HCG, Qual Negative Cardiac Studies: No Data to Display
[2021-07-29] MEDS: aztreonam 1,000 MG in sodium chloride 0.9% (plus) 50 ML 100 MG IV (09:59)
[2021-07-29] MEDS: HYDROcodone-acetaminophen 5-325 mg Tablet 1 TAB PO (11:52)
--- NOTE | 2021-07-29 12:07 | P.OP_ITS ---
Operative Report Date of procedure: July 29, 2021 Pre-op Diagnosis: 1. Postprandial right upper quadrant pain 2. Chronic cholecystitis Post-op Diagnosis: 1. Normal EGD 2. Chronic cholecystitis Procedure Done: 1. Laparoscopic cholecystectomy 2. Esophagogastroduodenoscopy without biopsy Specimens removed/disposition: Gallbladder Surgeon: Parish Sexton Anesthesia: General Condition: stable Disposition: PACU Procedure: The patient was taken to the operating room and placed under general anesthesia and a bite block was placed. A gastroscope was introduced and advanced up to second portion of the duodenum and slowly withdrawn. Duodenum second portion: Normal Duodenal bulb: Normal Stomach Fundus: Normal body: Normal Antrum: Normal Pylorus: Normal Esophagus GE junction: Normal at 40 cm Rest of esophagus: Normal After the antibiotic had been administered, the abdomen was prepped and draped in a sterile manner. Using a #15 blade, a 1 centimeter infraumbilical curvilinear incision was made and using an open Jessica technique the peritoneal cavity was entered. A 10 millimeter port was placed and 15 millimeters of pneumoperitoneum was created. A 10 millimeter, 30 degrees scope was then introduced. Three 5 millimeter ports were placed in the epigastric, midclavicular and the anterior axillary line two fingerbreadths below the costal margin on the right side under the direct visualization. Ratcheted forceps were introduced into the lateral most port and was used to retract the fundus of the gallbladder cephalad and using forceps the infundibulum of the gallbladder was retracted laterally. Using L-hook cautery the peritoneum overlying the Calot's triangle was opened medially and laterally until the cystic duct and the anterior and posterior branch of the cystic artery were skeletonized. Dissection was carried along the body of the gallbladder and after ensuring critical view of safety, 4 clips applied on the cystic duct and 3 clips applied on the anterior and posterior branch of the cystic artery and cut leaving, 3 clips on the remaining portion of the duct and 2 clips on the remaining portion of the artery. The rest of the gallbladder was dissected off the liver using L- hook cautery. There was no bleeding or bile leaking noted from the gallbladder fossa and the clips appeared to be in place. An EndoCatch bag was introduced to remove the gallbladder. All the ports were removed under direct visualization and there was no bleeding noted from the port sites. The fascia of the umbilicus was closed using [id number]-fr-[id number] 0 Vicryl sutures and the subcutaneous tissue was approximated using 3-0 Vicryl sutures. The skin at all four ports were closed using 4-0 Monocryl and Dermabond. A total of 10 millimeters of 0.5% Marcaine was infiltrated around the port sites. The patient was stable throughout the procedure.
--- NOTE | 2021-07-29 15:44 | ANE.PACU2 ---
Inpatient post-anesthesia follow up: Airway intact: Yes Vital signs: Temperature 97.7 F Pulse Rate 61 Respiratory Rate 17 Blood Pressure 101/56 Pulse Oximetry 95 Oxygen Delivery Me thod Room Air Oxygen Flow Rate Fraction of Inspir ed Oxygen Hydration adequate: Yes Nausea and vomiting: No Pain level: 2 Mental status: Baseline
== END 2021-07-29 12:14 | disposition home or self-care (01) ==
PROVIDERS: PCP Electrodiagnostic Medicine; Visit Provider Surgery
PROC: 0FT44ZZ Resection of Gallbladder, Percutaneous Endoscopic Approach (ICD-10-PCS; CPT 47562; principal; 2021-07-29 09:20)
PROC: 0DJ08ZZ Inspection of Upper Intestinal Tract, Via Natural or Artificial Opening Endoscopic (ICD-10-PCS; CPT 43235; 2021-07-29 09:20)
DX: K81.1 Chronic cholecystitis (principal); J44.9 Chronic obstructive pulmonary disease, unspecified; K21.9 Gastro-esophageal reflux disease without esophagitis; M79.7 Fibromyalgia; G47.30 Sleep apnea, unspecified; Z82.49 Family history of ischemic heart disease and other diseases of the circulatory system; Z83.3 Family history of diabetes mellitus
CPT/HCPCS: 47562; 43235; 84703; 88304; 96365; J1100; J2405; J2704; J2710; J3010; J3490; J7030

== ENCOUNTER 2021-12-02 06:00 | Outpatient (RCR) | payer MEDICAID, SELFPAY | END 2021-12-31 23:59 | disposition home or self-care (01) | LOC: SPT 06:00 | PROVIDERS: PCP Electrodiagnostic Medicine; Referring Provider Nurse Practitioner Family; Visit Provider Nurse Practitioner Family | DX: M53.3 Sacrococcygeal disorders, not elsewhere classified (principal); G89.29 Other chronic pain; M54.16 Radiculopathy, lumbar region | CPT/HCPCS: 97110; 97162 ==

== ENCOUNTER 2022-01-01 06:00 | Outpatient (RCR) | payer MEDICAID, SELFPAY | END 2022-01-25 12:14 | disposition home or self-care (01) | LOC: SPT 06:00 | PROVIDERS: PCP Clinical Nurse Specialist Adult Health; Referring Provider Nurse Practitioner Family; Visit Provider Nurse Practitioner Family | DX: M53.3 Sacrococcygeal disorders, not elsewhere classified (principal); M54.16 Radiculopathy, lumbar region; M54.50 Low back pain, unspecified; G89.29 Other chronic pain | CPT/HCPCS: 97110 ==

== ENCOUNTER 2022-01-13 12:39 | Outpatient (CLI) | payer MEDICAID, SELFPAY ==
--- NOTE | 2022-01-13 12:56 | XR_ITS ---
WS: [id number] KUB, AP view, 01/13/2022 Clinical Data: R FLANK PAIN/HEMATURIA Comparison: Acute abdomen series, 07/23/2010. Findings: No abnormal intraabdominal masses or calcifications are seen. There is no dilatated small bowel or ev idence of obstruction. There is a phlebolith overlying the bladder in the true pelvis. There are clips in the right upper qu adrant from a cholecystectomy. There is a moderate amount of fecal material in the colon. XR/XR KUB [id number] Impression: No definite renal calcifications.
== END 2022-01-13 12:40 | disposition home or self-care (01) ==
LOC: RAD 12:41
PROVIDERS: PCP Clinical Nurse Specialist Adult Health; Visit Provider Clinical Nurse Specialist Adult Health
DX: R10.9 Unspecified abdominal pain (principal); R31.9 Hematuria, unspecified
CPT/HCPCS: 74018

== ENCOUNTER → 2022-01-25 19:06 | Outpatient (BNVA) | payer MEDICAID, SELFPAY | PROVIDERS: Visit Provider Family Medicine | DX: N39.0 Urinary tract infection, site not specified (principal); R52 Pain, unspecified | CPT/HCPCS: 81000; 87086 ==

== ENCOUNTER 2022-06-21 12:01 | Emergency (ER) | payer MEDICAID, SELFPAY ==
[2022-06-21 12:12] VITALS: BP 122/83; PULSE 74; RESP 16; TEMP 36.5; O2SAT 98
--- NOTE | 2022-06-21 12:16 | ECG_ITS ---
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 Measurements Intervals [place] Rate: 73 P: 28 SD: 124 QRS: -3 QRSD: 77 T: 18 QT: 345 QTc: 382 Interpretive Statements SINUS RHYTHM No previous ECG available for comparison Electronically Signed On 06-21-2022 18:33:49 CDT by John Ferrara M.D. [id number]
== END 2022-06-21 14:14 | disposition left against medical advice (07) ==
PROVIDERS: Emergency Provider Family Medicine; PCP Electrodiagnostic Medicine
DX: Z53.21 Procedure and treatment not carried out due to patient leaving prior to being seen by health care provider (principal)
CPT/HCPCS: 93005

== ENCOUNTER → 2022-07-30 18:31 | Outpatient (BNVA) | payer MEDICAID, SELFPAY | PROVIDERS: PCP Electrodiagnostic Medicine; Visit Provider Registered Nurse Neonatal Intensive Care | DX: N39.0 Urinary tract infection, site not specified (principal) | CPT/HCPCS: 81000; 87086 ==

== ENCOUNTER → 2022-08-13 12:22 | Outpatient (BNVA) | payer MEDICAID, SELFPAY | PROVIDERS: PCP Electrodiagnostic Medicine; Visit Provider Registered Nurse Neonatal Intensive Care | DX: N39.0 Urinary tract infection, site not specified (principal); R39.9 Unspecified symptoms and signs involving the genitourinary system | CPT/HCPCS: 81000; 87077; 87086; 87184 ==

== ENCOUNTER → 2022-10-12 12:50 | Outpatient (BNVA) | payer MEDICAID, SELFPAY | PROVIDERS: PCP Electrodiagnostic Medicine; Visit Provider Nurse Practitioner Women's Health | DX: Z12.4 Encounter for screening for malignant neoplasm of cervix (principal); R10.2 Pelvic and perineal pain | CPT/HCPCS: 87491; 87591; 87624; 87661 ==

== ENCOUNTER → 2022-10-25 08:42 | Outpatient (BNVA) | payer MEDICAID, SELFPAY | PROVIDERS: PCP Electrodiagnostic Medicine; Visit Provider Nurse Practitioner Women's Health | DX: R10.2 Pelvic and perineal pain (principal) | CPT/HCPCS: 76830 ==

== ENCOUNTER → 2022-12-09 12:50 | Outpatient (BNVA) | payer MEDICAID, SELFPAY | PROVIDERS: PCP Electrodiagnostic Medicine; Visit Provider Nurse Practitioner | DX: R39.9 Unspecified symptoms and signs involving the genitourinary system (principal) | CPT/HCPCS: 81000; 87086 ==

== ENCOUNTER 2022-12-29 20:00 | Outpatient (CLI) | payer MEDICAID, SELFPAY | END 2022-12-29 20:01 | disposition home or self-care (01) | LOC: SLEEP 12-30 05:11 | PROVIDERS: PCP Electrodiagnostic Medicine; Visit Provider Electrodiagnostic Medicine | DX: R06.83 Snoring (principal); R53.83 Other fatigue | CPT/HCPCS: 95810 ==

== ENCOUNTER 2023-03-14 10:53 | Outpatient (CLI) | payer MEDICAID, SELFPAY ==
--- NOTE | 2023-03-14 10:59 | MR_ITS ---
WS: [id number] MRI LUMBAR SPINE NONCONTRAST TECHNIQUE: Sagittal T1, T2 and STIR imaging. Axial T1 and T2 imaging. CLINICAL INFORMATION: LUMBAR RADICULOPATHY COMPARISON: MRI lumbar 2019 FINDINGS: Mild lumbar curve. No acute compression. No high-grade central canal stenosis. L1-L2: Mild facet arthropathy. Spinal canal and foramen are patent. L2-L3: Tiny LEFT proximal foraminal protrusion with mild LEFT foraminal narrowing. Mild facet arthrop athy. Spinal canal and foramen are patent. L3-L4: LEFT eccentric disc bulging with mild LEFT foraminal narrowing. RIGHT foramen is patent. Mild facet arthropathy. L4-L5: No significant disc bulging. Mild facet arthropathy. Spinal canal and foramen are patent. L5-S1: Mild disc bulging with a shallow RIGHT pericentral protrusion. Slight contact of the RIGHT S1 nerve root. This is similar in appearance to 2019. Mild facet arthropathy. Mild RIGHT foraminal narro wing. Visualized pelvic bony structures: Normal. Paravertebral soft tissues: Normal. MR/MR lumbar spine wo con* [id number] IMPRESSION: 1. Mild lumbar curve. No acute compression. No high-grade central canal stenos is. 2. Shallow RIGHT pericentral protrusion L5-S1 slightly contacts the right S1 n erve root unchanged from previous. 3. Tiny left foraminal protrusion L3-4 with mild left foraminal narrowing unch anged. 4. Tiny LEFT foraminal protrusion L2-L3 with mild LEFT foraminal narrowing. 5. Mild facet arthropathy L3-L4 and L4-L5.
== END 2023-03-14 10:54 | disposition home or self-care (01) ==
LOC: RAD 10:53
PROVIDERS: PCP Electrodiagnostic Medicine; Visit Provider Electrodiagnostic Medicine
DX: M54.16 Radiculopathy, lumbar region (principal); M51.27 Other intervertebral disc displacement, lumbosacral region; M47.816 Spondylosis without myelopathy or radiculopathy, lumbar region; M48.061 Spinal stenosis, lumbar region without neurogenic claudication
CPT/HCPCS: 72148

== ENCOUNTER → 2023-08-09 15:45 | Outpatient (BNVA) | payer MEDICAID, SELFPAY | PROVIDERS: PCP Electrodiagnostic Medicine; Visit Provider Orthopaedic Surgery | DX: M54.16 Radiculopathy, lumbar region (principal) | CPT/HCPCS: 72110; 99204 ==

== ENCOUNTER → 2023-12-12 12:35 | Outpatient (BNVA) | payer MEDICAID, SELFPAY | PROVIDERS: PCP Electrodiagnostic Medicine; Visit Provider Nurse Practitioner | DX: R10.9 Unspecified abdominal pain (principal) | CPT/HCPCS: 81000 ==

== ENCOUNTER 2023-12-29 22:39 | Emergency (ER) | payer MEDICAID, SELFPAY ==
[2023-12-29 22:51] VITALS: BP 107/72; PULSE 79; RESP 16; TEMP 36.6; O2SAT 97
[2023-12-29 23:32] LABS: Basophils # 0.1 10^3/uL (0.0-0.1); Basophils % 0.4 %; Eosinophils # 0.2 10^3/uL (0.0-0.8); Eosinophils % 1.4 %; Hematocrit 40.6 % (36-47); Lymphocytes # 5.4 10^3/uL (0.8-4.8); Lymphocytes % 45.8 %; Mean Corpuscular Hemoglobin 30.8 pg (27-33); Mean Corpuscular Volume 90.6 fl (85-98); Mean Platelet Volume 10.8 fL (7.4-10.4); Monocytes # 0.8 10^3/uL (0.2-0.9); Monocytes % 6.6 %; Neutrophils # 5.36 10^3/uL (1.8-7.7); Neutrophils % 45.6 %; Nucleated Red Blood Cells % 0 %; Platelet Count 221 10^3/cmm (157-399); Red Blood Count 4.48 10^6/uL (3.85-5.65); Red Cell Distribution Width 12.9 % (12.1-15.1); White Blood Count 11.73 10^3/uL (3.29-11.43)
--- NOTE | 2023-12-29 23:32 | ED_ITS ---
HPI - Abdominal Pain 2 General: Chief Complaint: Abdominal Pain Stated Complaint: Lower right abd pain Time Seen by Provider: 12/29/23 23:12 History of Present Illness: 38-year-old female comes in today with c omplaints of right abdominal pain. Patient states that about 1 month ago she had similar type pain and was diagnosed with urinary tract infection and then started on antibiotics and discharged home. Patient completed antibiotics about 10 to 15 days ago and has been doing well up until the last 2 to 3 days. Patient has had increased pain and discomfort again. Patient has had her gallbladder and appendix removed 2 years ago. Patient reports no fever. Patient takes no routine medications. Patient is to have a L5-S1 fusion in 1 week. Patient has had a tubal ligation. Related Data: Date of Last Menstrual Period: 11/18/23 Review of Systems 2 General: Reports: 10 or more systems reviewed and unremarkable except in HPI and below : Reports: flank pain PFSH ED 2 PFSH: Medical History No pertinent past medical history neghx: htn,dm,thyroid,dvt/pe PCP: Dr. Schreiber Fibromyalgia Ovarian cyst 04/27/2019: Reports CT scan performed on 04/16/2019 for evaluation of pain showed an ovarian cyst. Sleep apnea (~06/2016) Uses CPAP Surgical History H/O dilation and curettage (~2009) for SAB H/O esophagogastroduodenoscopy (07/29/21) History of bilateral tubal ligation (10/18/12) minilaparotomy bilateral tubal ligation. . Performed by Dr. Fuentes at [facility] [place] in [place], [place]. History of laparoscopy (06/17/11) There was no evidence of endometriosis seen anywhere within the abdomen or pelvis. Both ovaries and tubes appeared normal. The uterus appeared normal. There were some filmy adhesions between the sigmoid colon and the left pelvic brim. No other abnormalities were noted. Performed by Dr. Hayward at [facility] [place] [facility] History of tonsillectomy and adenoidectomy S/P laparoscopic appendectomy (01/25/21) Status post colonoscopy (07/03/21) normal Status post laparoscopic cholecystectomy (07/29/21) Family History Mother Hypercholesteremia Heart disease Hypertension Diabetes Son No problems noted. Sister No problems noted. Grandmother Diabetes maternal Denies family history of Colon cancer Ovarian cancer Breast cancer Uterine cancer Stroke Social History Substance/Drug Use: never Female Reproductive History: Date of last menstrual period: 11/18/23 Physical Exam 2 Const: COMMON NORMALS: alert HENMT: COMMON NORMALS: normocephalic HEAD & SCALP: normocephalic Neck/C-Spine: COMMON NORMALS: full ROM Resp: COMMON NORMALS: normal respiratory effort and clear to auscultation bilaterally AUSCULTATION: clear to auscultation bilaterally Cardio: COMMON NORMALS: regular rate and regular rhythm RATE: regular rate RHYTHM: regular rhythm GI: COMMON NORMALS: Soft to palpation AUSCULTATION: Yes normoactive bowel sounds PALPATION: Yes Soft to palpation and Yes Tenderness to palpation present (GI) Details: RLQ : COMMON NORMALS: Yes no CVA tenderness BLADDER/KIDNEY EXAM: Yes no CVA tenderness Back/Pelvis: COMMON NORMALS: no CVA tenderness Extremity: COMMON NORMALS: normal to inspection Neuro: SENSORIUM/ORIENTATION: Yes alert Skin: COMMON NORMALS: turgor normal GENERAL SKIN EXAM: turgor normal Course 2 Vital Signs: Vital signs: Vital Signs Temperature 97.8 F 12/29/23 22:51 Pulse Rate 69 12/30/23 00:23 Respiratory Rate 16 12/30/23 00:32 Blood Pressure 101/58 12/30/23 00:23 Pulse Oximetry 97 12/30/23 00:32 Oxygen Delivery Me thod Room Air 12/30/23 00:23 MDM - Abdominal Pain Medical Decision Making Patient comes in today for concerns of right-sided abdominal pain. On exam abdomen soft with some tenderness in the right upper quadrant. Bowel sounds are present. Vital signs are normal. Differential diagnosis includes renal calculi, surgical adhesions, constipation, bowel obstruction, muscle strain. Laboratory values were unremarkable. Urinalysis was clean. CT of abdomen and pelvis noted no renal calculi or other signs of infection. Patient reports understanding of care plan patient was treated for pain with improvement. Patient was recommended to follow-up with primary care for further instructions return to ED for worsening symptoms. Lab Data 12/29/23 23:27 12/29/23 23:27 Labs/Radiology: Radiology Impressions Abdomen/Pelvis CT 12/29/23 23:42 IMPRESSION: 1. No bowel obstruction or inflammatory process associated with the bowel. 2. No free air or significant free fluid in the abdomen or pelvis. 3. No hydronephrosis or renal calculus. No stone in the bladder. Laboratory Results WBC 11.73 10^3/uL (3.29-11.43) H 12/29/23 23: RBC 4.48 10^6/uL (3.85-5.65) 12/29/23 23: Hgb 13.80 g/dL (11.27-16.99) 12/29/23 23: Hct 40.6 % (36-47) 12/29/23 23: MCV 90.6 fl (85-98) 12/29/23 23: MCH 30.8 pg (27-33) 12/29/23 23: MCHC 34.0 g/dL (30-55) 12/29/23 23: RDW 12.9 % (12.1-15.1) 12/29/23 23: Plt Count 221 10^3/cmm (157-399) 12/29/23 23: MPV 10.8 fL (7.4-10.4) H 12/29/23 23: Neut % (Auto) 45.6 % 12/29/23 23: Lymph % (Auto) 45.8 % 12/29/23 23: Mcintosh % (Auto) 6.6 % 12/29/23 23: Eos % (Auto) 1.4 % 12/29/23 23: Baso % (Auto) 0.4 % 12/29/23 23:27 Neut # (Auto) 5.36 10^3/uL (1.8-7.7) 12/29/23 23: Lymph # (Auto) 5.4 10^3/uL (0.8-4.8) H 12/29/23 23:27 Mcintosh # (Auto) 0.8 10^3/uL (0.2-0.9) 12/29/23 23: Eos # (Auto) 0.2 10^3/uL (0.0-0.8) 12/29/23 23:27 Baso # (Auto) 0.1 10^3/uL (0.0-0.1) 12/29/23 23: Nucleated RBC % (auto) 0 % 12/29/23 23: Nucleated RBCs # 0.0 /100WBC 12/29/23 23:27 Sodium 141 mmol/L (136-145) 12/29/23 23:27 Potassium 3.9 mmol/L (3.5-5.1) 12/29/23 23:27 Chloride 107 mmol/L (98-107) 12/29/23 23:27 Carbon Dioxide 25 mmol/L (22-29) 12/29/23 23:27 Anion Gap 12.9 (5-19) 12/29/23 23:27 BUN 12 mg/dL (6-20) 12/29/23 23: Creatinine 0.7 mg/dL (0.5-0.9) 12/29/23 23:27 GFR Calculation 92.7 mL/min (90-130) 12/29/23 23:27 Glucose 97 mg/dL (65-115) 12/29/23 23: Calculated Osmolality 292 mOsm/kg (285-295) 12/29/23 23: Calcium 9.2 mg/dL (8.5-10.5) 12/29/23 23: Total Bilirubin 0.3 mg/dL (0.15-1.2) 12/29/23 23: AST 21 U/L (0-32) 12/29/23 23:27 ALT 25 U/L (0-33) 12/29/23 23:27 Alkaline Phosphatase 72 U/L (35-105) 12/29/23 23:27 Total Protein 7.0 g/dL (6.6-8.7) 12/29/23 23: Albumin 4.3 g/dL (3.5-5.2) 12/29/23 23: Globulin 2.7 g/dL (1.3-4.6) 12/29/23 23:27 Lipase 25 U/L (13-60) 12/29/23 23:27 HCG, Qual Negative (Negative) 12/29/23 23:27 Urine Color Yellow (Yellow) 12/29/23 23:31 Urine Appearance Clear (CLEAR) 12/29/23 23:31 Urine pH 6 (5-7) 12/29/23 23:31 Ur Specific [place] 1.020 (1.005-1.030) 12/29/23 23:31 Urine Protein Neg (Negative) 12/29/23 23:31 Urine Glucose (UA) Norm (Normal) 12/29/23 23:31 Urine Ketones Negative (Negative) 12/29/23 23:31 Urine Blood 2+ (Negative) H 12/29/23 23:31 Urine Nitrate Negative (Negative) 12/29/23 23:31 Urine Bilirubin Neg (Negative) 12/29/23 23:31 Urine Urobilinogen Neg mg/dL (Negative) 12/29/23 23:31 Ur Leukocyte Esterase Negative (Negative) 12/29/23 23:31 Urine RBC 5-10 /hpf (0-2) H 12/29/23 23:31 Urine WBC None /hpf (0-5) 12/29/23 23:31 Ur Squamous Epith Cells 5-10 /hpf (0-5) H 12/29/23 23:31 Amorphous Sediment Not Reportable 12/29/23 23:31 Urine Bacteria Trace /hpf (NONE) 12/29/23 23:31 Urine Mucus 2+ /hpf 12/29/23 23:31 All radiology interpretation(s) finalized by discharge Discharge Plan Discharge Patient Disposition: Home Clinical Impression: Abdominal pain Qualifiers: Abdominal location: right upper quadrant Qualified Code(s): R10.11 - Right upper quadrant pain Condition: Stable Prescriptions: No Action cyclobenzaprine 10 mg tablet 10 mg PO BID PRN (Reason: muscle spasm) Qty: 60 0RF norethindrone acetate 5 mg tablet 5 mg PO DAILY Qty: 90 0RF sulfamethoxazole-trimethoprim [Bactrim DS] 800-160 mg tablet 1 tab PO BID 10 Days Qty: 20 0RF Discharge Orders: Discharge ED (Routine); Ordered 12/30/23 Ordered By: Yvan Larios Referrals: Patrick Schreiber DO [Primary Care Provider] - Patient Instructions: Abdominal Pain (ED) Activity Restrictions/Additional Instructions: Drink plenty water and fluids. Your exam noted no significant abnormality. I believe most likely the reasoning for your pain is secondary to adhesions from prior surgeries. Sometimes this will cause some irritation of the bowel that can be inflamed from illness or constipation. Right now drink plenty of water and fluids. Use acetaminophen along with ice or heat to help control the pain. Follow-up with primary care for further instructions. Return to ED for worsening symptoms such as fever greater than 100.4, blood in vomit or stool, inability to hold fluids down, or new concerns. Coding Level of Care Code ED Ladle Pourer for Kristal Rogers
--- NOTE | 2023-12-29 23:42 | CTR_ITS ---
PROCEDURE INFORMATION: Exam: CT Abdomen And Pelvis Without Contrast Exam date and time: 12/29/2023 11:53 PM Age: 38 years old Clinical indication: Abdominal pain; Flank; Right; Prior surgery; Surgery date: 6+ months; Surgery type: Gb, appendix, tubal; Additional info: Right flank pain, UTI TECHNIQUE: Imaging protocol: Computed tomography of the abdomen and pelvis without contrast. Radiation optimization: All CT scans at this facility use at least one of these dose optimization techniques: automated exposure control; mA and/or kV adjustment per patient size (includes targeted exams where dose is matched to clinical indication); or iterative reconstruction. COMPARISON: CT abdomen pelvis w con* [id number] 02/12/2021 5:28 PM RADIATION DOSE METRICS: Total DLP (mGy-cm): 451.4 FINDINGS: Liver: Normal. No mass. Gallbladder and bile ducts: The gallbladder is absent. Pancreas: Normal. No ductal dilation. Spleen: Normal. No splenomegaly. Adrenal glands: Normal. No mass. Kidneys and ureters: Normal. No hydronephrosis. Stomach and bowel: Unremarkable. No obstruction. No mucosal thickening. Appendix: The appendix is absent. Intraperitoneal space: Unremarkable. No free air. No significant fluid collection. Vasculature: Unremarkable. No abdominal aortic aneurysm. Lymph nodes: Unremarkable. No enlarged lymph nodes. Urinary bladder: Unremarkable as visualized. Reproductive: Unremarkable as visualized. Bones/joints: Bilateral pars defects at L5 with no listhesis. Soft tissues: Unremarkable. CT/CT kidney stone [id number] IMPRESSION: 1. No bowel obstruction or inflammatory process associated with the bowel. 2. No free air or significant free fluid in the abdomen or pelvis. 3. No hydronephrosis or renal calculus. No stone in the bladder.
[2023-12-29 23:48] LABS: HCG, Serum Qual Negative (Negative)
--- NOTE | 2023-12-29 23:52 | PC.NURSE ---
Patient requesting nausea and pain medications. 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
[2023-12-29 23:53] LABS: Alanine Aminotransferase 25 U/L (0-33); Albumin Level 4.3 g/dL (3.5-5.2); Alkaline Phosphatase 72 U/L (35-105); Anion Gap 12.9 (5-19); Aspartate Amino Transferase 21 U/L (0-32); Blood Urea Nitrogen 12 mg/dL (6-20); Calcium 9.2 mg/dL (8.5-10.5); Carbon Dioxide 25 mmol/L (22-29); Chloride 107 mmol/L (98-107); Globulin 2.7 g/dL (1.3-4.6); Glomerular Filtration Rate 92.7 mL/min (90-130); Glucose 97 mg/dL (65-115); Lipase 25 U/L (13-60); Osmolality Calculated 292 mOsm/kg (285-295); Potassium 3.9 mmol/L (3.5-5.1); Sodium 141 mmol/L (136-145); Total Bilirubin 0.3 mg/dL (0.15-1.2)
[2023-12-29 23:55] LABS: Slide Review Slide Review Perform
[2023-12-30 00:01] LABS: Add Urine Microscopic? YES; Bilirubin Urine Neg (Negative); Blood Urine 2+ (Negative); Glucose Urine UA Norm (Normal); Ketones Urine Negative (Negative); Leukocyte Esterase Urine Negative (Negative); Nitrate Urine Negative (Negative); Protein Urine Neg (Negative); Urine Appearance Clear (CLEAR); Urine Color Yellow (Yellow); Urobilinogen Urine Neg (Negative); pH Urine 6 (5-7)
[2023-12-30 00:02] LABS: Add Urine Culture? No; Bacteria Urine TRACE /hpf; Mucus Urine 2+ /hpf
[2023-12-30 00:23] VITALS: BP 101/58; PULSE 69; RESP 16; O2SAT 97
[2023-12-30] MEDS: ondansetron 2 mg/ML SDV 2 mL 4 MG IVP (00:31)
[2023-12-30 00:32] VITALS: RESP 16; O2SAT 97
[2023-12-30] MEDS: fentaNYL 50 mcg/mL INJ 2mL IVP (00:32)
[2023-12-30 01:27] VITALS: BP 95/58; PULSE 96
== END 2023-12-30 01:28 | disposition home or self-care (01) ==
PROVIDERS: Emergency Provider Nurse Practitioner Family; PCP Electrodiagnostic Medicine
DX: R10.11 Right upper quadrant pain (principal)
CPT/HCPCS: 74176; 80053; 81001; 81003; 83690; 84703; 85025; 96374; 96375; 99285; J2405; J3010

== ENCOUNTER 2024-01-25 14:04 | Outpatient (CLI) | payer MEDICAID, SELFPAY ==
--- NOTE | 2024-01-25 14:14 | XRR_ITS ---
PROCEDURE INFORMATION: Exam: XR Lumbosacral Spine Exam date and time: 01/25/2024 2:22 PM Age: 38 years old Clinical indication: Low back pain; Prior surgery; Surgery date: <1 month; Surgery type: L spine fusion; Patient HX: Pain 3 weeks after surgery; Additional info: Lumbar facet arthropathy TECHNIQUE: Imaging protocol: Radiologic exam of the lumbosacral spine. Views: 2 or 3 views. COMPARISON: CR XR lumbar spine min 4V [id number] 08/09/2023 3:45 PM FINDINGS: Bones/joints: Intact posterior spinal fusion hardware with intervertebral disc spacer at the L5-S1 segment. No acute fracture. No evident spinal malalignment. Soft tissues: Unremarkable. XR/XR lumbar spine 2-3V* [id number] IMPRESSION: No acute findings.
== END 2024-01-25 14:05 | disposition home or self-care (01) ==
LOC: RAD 14:06
PROVIDERS: PCP Electrodiagnostic Medicine; Visit Provider Nurse Practitioner Family
DX: M47.816 Spondylosis without myelopathy or radiculopathy, lumbar region (principal)
CPT/HCPCS: 72100

== ENCOUNTER 2024-05-15 09:44 | Outpatient (CLI) | payer MEDICAID, SELFPAY ==
--- NOTE | 2024-05-15 09:49 | XR_ITS ---
WS: [email or web address] Examination: XR lumbar spine 2-3V* [id number] Reason for Exam: PARS DEFECT OF LSPINE/FUSION OF SPINE/MID BACK PAIN Date: May 15, 2024 Comparison: January 25, 2024 Findings: The pedicles and the bone density are intact. Again postsurgical changes are noted with posterior amanda fixation and pedicle screws at L5-S1. In the interval vertebral body spacers noted Alignment is anatomic without subluxation. There is no wedging or compression Minimal anterior lipping is again noted. XR/XR lumbar spine 2-3V* [id number] Impression: Stable postop changes are noted at L5-S1.
--- NOTE | 2024-05-15 09:49 | XR_ITS ---
WS: [email or web address] Examination: XR thoracic spine 2V [id number] Reason for Exam: PARS DEFECT OF LUMBAR/MID BACK PAIN/RADICULOPATHY, LSPINE Date: May 15, 2024 Comparison: July 31, 2015 Findings: The pedicles and the bone density are intact. There is no wedging or compression. There is no subluxation Mild anterior lipping and hypertrophic changes are present. XR/XR thoracic spine 2V [id number] Impression: There is no compression or subluxation. Mild hypertrophic changes are present.
== END 2024-05-15 09:45 | disposition home or self-care (01) ==
LOC: RAD 09:46
PROVIDERS: PCP Electrodiagnostic Medicine; Visit Provider Nurse Practitioner Family
DX: M43.06 Spondylolysis, lumbar region (principal); M43.26 Fusion of spine, lumbar region; M54.16 Radiculopathy, lumbar region; M54.9 Dorsalgia, unspecified; M54.50 Low back pain, unspecified
CPT/HCPCS: 72070; 72100

== ENCOUNTER → 2024-08-02 12:11 | Outpatient (BNVA) | payer MEDICAID, SELFPAY | PROVIDERS: PCP Electrodiagnostic Medicine; Visit Provider Nurse Practitioner | DX: R39.9 Unspecified symptoms and signs involving the genitourinary system (principal) | CPT/HCPCS: 81000; 87086 ==

== ENCOUNTER → 2024-12-19 19:23 | Outpatient (BNVA) | payer MEDICAID, SELFPAY | PROVIDERS: PCP Electrodiagnostic Medicine; Visit Provider Registered Nurse Neonatal Intensive Care | DX: R10.30 Lower abdominal pain, unspecified (principal) | CPT/HCPCS: 81000 ==

== ENCOUNTER 2025-07-08 15:32 | Outpatient (CLI) | payer MEDICAID, SELFPAY ==
--- NOTE | 2025-07-08 15:40 | XR_ITS ---
WS: [email or web address] Cervical spine, 3 views, 07/08/2025 Clinical Data: CERVICAL RADICULOPATHY Comparison: Cervical spine, 05/20/2016 Findings: There is an anterior cervical disc fusion C4-C7 with disc spacers. No compression fractures are noted. No prevertebral soft tissue swelling is present. The odontoid is normal. The soft tissues of the neck and the lung apices are normal. XR/XR cervical spine 3V* [id number] Impression: Anterior cervical disc fusion C4-C7.
== END 2025-07-08 15:33 | disposition home or self-care (01) ==
LOC: RAD 15:36
PROVIDERS: PCP Electrodiagnostic Medicine; Visit Provider Nurse Practitioner Family
DX: M54.12 Radiculopathy, cervical region (principal); M43.22 Fusion of spine, cervical region
CPT/HCPCS: 72040

== ENCOUNTER → 2025-07-26 09:37 | Outpatient (BNVA) | payer MEDICAID, SELFPAY | PROVIDERS: PCP Electrodiagnostic Medicine; Visit Provider Family Medicine Adult Medicine | DX: R39.9 Unspecified symptoms and signs involving the genitourinary system (principal) | CPT/HCPCS: 81000 ==

== ENCOUNTER 2025-08-07 08:41 | Outpatient (CLI) | payer MEDICAID, SELFPAY ==
--- NOTE | 2025-08-07 08:40 | MM_ITS ---
WS: [email or web address] SCREENING DIGITAL BREAST TOMOSYNTHESIS MAMMOGRAM WITH CAD HISTORY: screening COMPARISON: None available. Bilateral CC and MLO with tomosynthesis and synthetic mammography submitted. Computer aided detection analyzed. Breast composition: The breasts are heterogeneously dense, which may obscure small masses. Focal asymmetry posterior LEFT breast at 3:00 needs to be further evaluated. This may be superimposed fibroglandular densities. No additional abnormalities within either breast. No grouping of calcifications. MM/MM [facility] tomosynthesis [id number] IMPRESSION: BI-RADS: 0 - Incomplete: Need additional imaging evaluation FOLLOW UP: Need Additional Imaging LEFT breast: Spot compression views (CC and MLO). True ML. Ultrasound to follow if abnormality persists.
== END 2025-08-07 08:42 | disposition home or self-care (01) ==
PROVIDERS: PCP Family Medicine; Visit Provider Family Medicine
DX: Z12.31 Encounter for screening mammogram for malignant neoplasm of breast (principal); E04.1 Nontoxic single thyroid nodule; Z13.6 Encounter for screening for cardiovascular disorders; E03.9 Hypothyroidism, unspecified; R92.333 Mammographic heterogeneous density, bilateral breasts; N64.89 Other specified disorders of breast
CPT/HCPCS: 77063; 77067; 80053; 80061; 84439; 84443; 85025